=== PATIENT | male | born 1980 | race Caucasian/White ===

== ENCOUNTER 2016-04-13 17:14 | Emergency (ER) | payer OTHER ==
--- NOTE | ~2016-04-13 | EKG ---
PATIENT: DIONISIO DINERO UNIT #: [id number] Ventricular Rate: 102 BPM Atrial Rate: 102 BPM P-R Interval: 166 ms QRS Duration: 76 ms Q-T Interval: 324 ms QTC Calculation(Bezet): 422 ms P [place]: 76 degrees Calculated R [place]: 50 degrees Calculated T [place]: 74 degrees Diagnosis Line: Sinus tachycardia Nonspecific ST abnormality T Diagnosis Line: wave abnormality, consider lateral ischemia Diagnosis Line: Otherwise normal ECG Diagnosis Line: When compared with ECG of 13-APR-2016 17:06, Diagnosis Line: (unconfirmed) Diagnosis Line: No significant change was found Diagnosis Line: Confirmed by JOSE BLACKMON MD ([id number]) on 04/14/2016 Diagnosis Line: 6:22:53 PM INTERPRETING MD: LORRI LONG
[~2016-04-13 17:14] MED LIST: NO MEDICATIONS
[2016-04-13 18:22] LABS: BASOPHIL# 0.1 X10e3 (0-0.3); BASOPHIL% 1.2 % (0-2.5); EOSINOPHIL% 0.6 % (0.0-7.0); HEMATOCRIT 46.8 % (38.0-50.0); LYMPHOCYTE# 1.8 X10e3 (1.0-3.5); LYMPHOCYTE% 30.7 % (17.0-45.0); MEAN CELL VOLUME 102.1 FL (83-96); MEAN CORPUSCULAR HEMOGLOBIN 34.8 PG (28-34); MEAN CORPUSCULAR HGB CONC 34.1 g/dL (30-36); MEAN PLATELET VOLUME 7.7 FL (6.5-11.5); MONOCYTE# 0.5 X10e3 (0-1.0); MONOCYTE% 7.9 % (3.0-12.0); NEUTROPHIL# 3.5 X10e3 (1.5-7.1); NEUTROPHIL% 59.6 % (40-75); PLATELET COUNT 245 X10e3 (140-420); RED BLOOD COUNT 4.59 X10e (3.90-5.60); RED CELL DISTRIBUTION WIDTH 12.8 % (11.0-15.5); WHITE BLOOD COUNT 5.8 X10e3 (4.0-10.5)
[2016-04-13 18:23] LABS: DIFF IND NO
[2016-04-13 18:35] LABS: INR 0.9; PROTHROMBIN TIME (PATIENT) 9.6 SECONDS (9.6-11.5)
[2016-04-13 18:46] LABS: ALBUMIN SERUM 4.7 g/dL (3.5-5.0); ALKALINE PHOSPHATASE 89 U/L (32-92); ALT (SGPT) 92 U/L (10-40); AST (SGOT) 100 U/L (10-42); BILIRUBIN, DIRECT 0.1 mg/dL (0.0-0.2); BILIRUBIN,INDIRECT 0.4 mg/dL (0.0-0.9); BILIRUBIN,TOTAL 0.5 mg/dL (0.2-2.0); BLOOD UREA NITROGEN 9 mg/dL (9-23); CARBON DIOXIDE 26 mmol/L (22-31); CHLORIDE 101 mmol/L (100-111); CREATININE SERUM 0.9 mg/dL (0.6-1.4); GLOM FILT RATE Estimated ABOVE60 mL/min (>60); GLUCOSE FASTING 158 mg/dL (70-110); POTASSIUM 3.3 mmol/L (3.5-5.1); PROTEIN TOTAL SERUM 8.1 g/dL (6.0-8.3); SALICYLATE <4.0 mg/dL; SODIUM 139 mmol/L (135-145)
[2016-04-13 18:55] LABS: ACETAMINOPHEN <10 ug/mL
[2016-04-13 18:56] LABS: ALCOHOL BLOOD 375 mg/dL (0)
[2016-04-13 20:24] LABS: AMPHETAMINE NEG (NEG); BARBITURATES NEG (NEG); BENZODIAZEPINES NEG (NEG); COCAINE NEG (NEG); MARIJUANA POS (NEG); OPIATES NEG (NEG); TRICYCLIC ANTIDEPRESSANTS NEG (NEG); U METHADONE NEG (NEG)
== END 2016-04-13 22:24 | disposition home or self-care (01) ==
LOC: CED 17:14
PROVIDERS: Emergency Medicine
DX: F10.129 Alcohol abuse with intoxication, unspecified (principal); F17.200 Nicotine dependence, unspecified, uncomplicated; Z98.890 Other specified postprocedural states
CPT/HCPCS: 36415; 80048; 80076; 80307; 82947; 85025; 85610; 93005; 96374; 99283; G0480; J2060; J3411; J3475

== ENCOUNTER 2016-06-17 11:00 | Inpatient (IN) | payer OTHER ==
--- NOTE | ~2016-06-17 | PN ---
Unit #: [id number] #: [id number] Patient: JAMAR DINERO [id number] [facility] [address] [place] [address] [id number] I MR#: [id number] NAME: JAMAR DINERO. ROOM: 74 Age: 35 Sex: M Admission Date: 06/17/2016 : 1980 Attending Physician: Nick Price M.D. Admitting Physician: Nick Price M.D. Primary Care Physician: Annabelle Avendaño PROGRESS NOTES DATE 06/19/2016 DISCUSSION Jamar is a 35-year-old male seen on 06/19/2016. The patient interviewed, chart reviewed. Obtained information from nursing staff. The patient continues to be isolative, guarded, flat affect. Vital signs 98.1, 79, 113/75. The patient is able to sleep good. Able to participate in group. Mood sad, dysphoric. The patient was admitted with alcohol use disorder moderate opiate use disorder moderate. Complete review of systems unremarkable. MENTAL STATUS EXAMINATION General appearance, the patient dressed casually. Attention span and concentration fair. Oriented to time, place and person. Mood and affect labile. Speech monotone. Thought process concrete. The patient denied any thoughts of harming self or others. Recent and remote memory poor. Insight and judgement poor. DIAGNOSES Alcohol use disorder moderate Opioid use moderate ASSESSMENT/PLAN Advise to continue with current medication and therapeutic protocol. If needed consider further adjustment of medication. Dictated by... Annabelle Ibarra/juanita TD: 06/21/2016 03:17 JOB #: [id number] Unit #: [id number] #: [id number] Patient: JAMAR DINERO PROGRESS NOTES Page 1 of 1 X Nick Price MD X PROGRESS NOTE
--- NOTE | ~2016-06-17 | PN ---
Unit #: [id number] #: [id number] Patient: JAMAR DINERO [id number] [facility] [address] [place] [address] [id number] I MR#: [id number] NAME: JAMAR DINERO. ROOM: P174 Age: 35 Sex: M Admission Date: 06/17/2016 : 1980 Attending Physician: Nick Price M.D. Admitting Physician: Nick Price M.D. Primary Care Physician: Annabelle Avendaño PROGRESS NOTES DATE 06/18/2016 DISCUSSION Jamar is a 35-year-old male seen on 06/18/2016. Patient interviewed, chart reviewed, obtained information from the nursing staff. The patient's vital signs are 98.7, 76, 133/88. Complete review of systems unremarkable. MENTAL STATUS EXAMINATION General appearance: Patient dressed casually. Attention span and concentration fair. Oriented in time, place and person. Mood and affect labile. Speech monotone. Thought process concrete. Patient denied any thoughts of harming self or others, but anxious, nervous, withdrawn, isolative. Recent and remote memory poor. Insight and judgement poor. DIAGNOSIS Alcohol use disorder, moderate. F10.20. Opiate use disorder, moderate. F11.20. ASSESSMENT AND PLAN Continued with current therapeutic treatment on the inpatient unit. If needed, consider further adjustment of medication. Dictated by... Annabelle Ibarra/tanvir TD: 06/19/2016 12:15 JOB #: [id number] Unit #: [id number] #: [id number] Patient: JAMAR DINERO PROGRESS NOTES Page 1 of 1 X Nick Price MD PROGRESS NOTE
--- NOTE | ~2016-06-17 | PN ---
Unit #: [id number] #: [id number] Patient: JAMAR DINERO [id number] [facility] [address] [place] [address] [id number] I MR#: [id number] NAME: JAMAR DINERO. ROOM: 74 Age: 35 Sex: M Admission Date: 06/17/2016 : 1980 Attending Physician: Nick Price M.D. Admitting Physician: Nick Price M.D. Primary Care Physician: Annabelle Avendaño PROGRESS NOTES DATE 06/20/2016 DISCUSSION Jamar Dinero is a 35-year-old male, seen on 06/20/2016. The patient interviewed, chart reviewed, and obtained information from the nursing staff. The patient pleasant and cooperative, tolerating medication fairly well. The patient still somewhat isolative and guarded, but making progress. Vital signs, 98.1, 91, 18, and 145/80. REVIEW OF SYSTEMS Complete review of systems unremarkable. MENTAL STATUS EXAMINATION General appearance: Patient dressed casually. Attention span and concentration, fair. Oriented to place and person. Mood and affect, sad and dysphoric. Speech, monotone. Thought process, goal-directed. The patient denied any thoughts of harming self or others. Recent and remote memory, poor. Insight and judgment, poor. DIAGNOSES 1. Alcohol use disorder, severe. 2. Opiate use disorder, moderate. ASSESSMENT/PLAN Advised to continue with the current medication and therapeutic protocol, and if needed consider further adjustment of medication. Dictated by... Annabelle Ibarra/pito TD: 06/21/2016 11:35 JOB #: [id number] Unit #: [id number] #: [id number] Patient: JAMAR DINERO PROGRESS NOTES Page 1 of 1 X Nick Price MD X PROGRESS NOTE
--- NOTE | ~2016-06-17 | HP ---
Unit #: [id number] #: [id number] Patient: DIONISIO DINERO [id number] [place] [address] [id number] I MR#: [id number] NAME: DIONISIO DINERO. ROOM: 74 Age: 35 Sex: M Admission Date: 06/17/2016 : 1980 Attending Physician: Nick Price M.D. Admitting Physician: Nick Price M.D. Primary Care Physician: Jessica Simpson M.D. HISTORY AND PHYSICAL HISTORY OF PRESENT ILLNESS The patient is a 35-year-old male admitted to [facility] on 06/17/2016 for heroin and alcohol abuse. PAST MEDICAL HISTORY 1. Withdrawal seizures. 2. Polysubstance use. 3. Smoker. PAST SURGICAL HISTORY 1. Appendectomy. 2. Hernia repair. ALLERGIES No known drug allergies. SOCIAL HISTORY He is unemployed. He lives in hotels. He smokes 1/2 pack of cigarettes daily. Drinks half gallon of vodka per day. He uses heroin on a daily basis. FAMILY HISTORY Noncontributory. REVIEW OF SYSTEMS CONSTITUTIONAL: No fever or chills. HEENT: Denies any sore throat, ear pain or runny nose. CARDIOVASCULAR: Denies chest pain, irregular heart rhythm or palpitations. CHEST: Denies shortness of breath or cough. No hemoptysis. GASTROINTESTINAL: Denies nausea, vomiting, diarrhea or chronic constipation. ENDOCRINE: Denies history of increased thirst or urination. No recent significant weight loss or gain. GENITOURINARY: Denies dysuria, frequency, or hematuria. SKIN: Denies any rashes. HEMATOLOGIC: Denies history of increased bleeding or bruising. MUSCULOSKELETAL: Denies any hot, swollen joints. No generalized muscle pain. NEUROLOGIC: Denies problems with vision or speech. No frequent, severe headaches. No numbness, tingling or weakness in any extremities. Denies loss of bladder or bowel control. CURRENT MEDICATIONS Unit #: [id number] #: [id number] Patient: DIONISIO DINERO The patient is not on any home medications. PHYSICAL EXAMINATION GENERAL: He is awake, alert, oriented, in no acute distress. VITAL SIGNS: Temperature 97.8, heart rate 76, respirations 17, blood pressure 132/88. HEIGHT: 5 feet 11. WEIGHT: 160 pounds. SKIN: Warm and dry without rash or lesion. HEENT: Normocephalic. TMs not viewed. Oral and nasal passages clear. Conjunctivae clear. PERRLA. EOMs intact. NECK: Supple without lymphadenopathy or thyromegaly. HEART: Regular rate and rhythm without murmur. LUNGS: Clear. ABDOMEN: Soft, nontender. : Not done. EXTREMITIES: No evidence of cyanosis, clubbing or edema. Moves all without focal deficit. NEUROLOGICAL: Grossly within normal limits. Cranial Nerves: II: Visual chen are intact. III, IV AND : Extraocular movements are intact. Pupils are equal, round and reactive to light. V: Facial sensation is grossly normal. VII: Facial movements and expression are normal. VIII: Auditory acuity grossly intact. IX, X: Uvula is midline. Phonation is normal. XI: Patient shrugs shoulders and turns head normally. XII: Tongue protrudes in the midline. Sensory and Motor Function: Sensory and motor sensation is grossly normal. Motor: moves all extremities well. Coordination: Gait is normal. Deep Tendon Reflexes: Intact. IMPRESSION 1. Psychiatric admission. 2. Polysubstance use. 3. Withdrawal seizures. 4. Smoker. RECOMMENDATIONS PSYCHIATRIC: Per psychiatrist. MEDICAL: See no contraindications to participate in facility's activities. MEDICAL PROGNOSIS Good. MEDICAL CONDITION Stable. Dictated by... Sohan Cooper/chica TD: 06/18/2016 21:57 JOB #: [id number] Unit #: [id number] #: [id number] Patient: DIONISIO DINERO HISTORY AND PHYSICAL Page 1 of 1 X ZARIA CHEN APRN HISTORY AND PHYSICAL
--- NOTE | ~2016-06-17 | DS ---
Unit #: [id number] #: [id number] Patient: DIONISIO DINERO [id number] [facility] [address] [place] [address] [id number] I MR#: [id number] NAME: DIONISIO DINERO. ROOM: 74 Age: 35 Sex: M Admission Date: 06/17/2016 : 1980 Discharge Date: 06/21/2016 Attending Physician: Nick Price M.D. Primary Care Physician: Jessica Simpson M.D. DISCHARGE SUMMARY REASON FOR ADMISSION Suicidal ideation, detox. DIAGNOSTIC STUDIES LABORATORY RESULTS: Urine drug screen positive for benzodiazepine and marijuana. HOSPITAL COURSE The patient was admitted to inpatient unit on 06/17/2016 and discharged on 06/21/2016. The patient was treated with expressive therapy, medication management, psychoeducation, psychotherapy, and structured milieu. The patient responded well with the above modalities of treatment and able to maintain safe behavior. Subsequently, the patient was discharged with a plan to follow up in [facility]. DISCHARGE MEDICATIONS None. DISCHARGE DIAGNOSES Psychiatric: 1. Alcohol use disorder, moderate, F10.20. 2. Opioid use disorder, moderate, F11.20. 3. Sedative hypnotic use disorder, moderate, F13.20. 4. Cannabis abuse, moderate, F12.20. Secondary diagnosis: Deferred. Medical diagnosis: History of withdrawal seizures. Stressors: Psychosocial stressors. DISCHARGE INSTRUCTIONS The patient to follow up in outpatient clinic as per director of social services. CONDITION ON DISCHARGE The patient was pleasant and cooperative. Denied any psychotic symptom or any suicidal ideation. PROGNOSIS Guarded. DIET AND ACTIVITY As tolerated. Unit #: [id number] #: [id number] Patient: DIONISIO DINERO Dictated by... Nick Price M.D. SZC/heena TD: 06/22/2016 01:02 JOB #: [id number] DISCHARGE SUMMARY Page 1 of 1 X Nick Price MD X DISCHARGE SUMMARY
--- NOTE | ~2016-06-17 | PA ---
Unit #: [id number] #: [id number] Patient: JAMAR DINERO [id number] [facility] [address] [place] [address] [id number] MR#: [id number] NAME: JAMAR DINERO. ROOM: 74 Age: 35 Sex: M Admission Date: 06/17/2016 : 1980 Date of Assessment: Attending Physician: Nick Price M.D. Admitting Physician: Nick Price M.D. Primary Care Physician: Jessica Simpson M.D. PSYCHIATRIC ASSESSMENT INFORMANT The patient reliability, fair; chart reliability, good. CHIEF COMPLAINT Detox from alcohol, opiates. HISTORY OF PRESENT ILLNESS Jamar is a 35-year-old male, seen on , presented with the above-mentioned complaint, admitted with alcohol use disorder, opioid use disorder, withdrawal seizure. The patient reported that he drinks all throughout the day, stated that he can only sleep if he has been drinking and awake in the middle of the night and must drink in order to go back to sleep. The patient reported history of withdrawal seizure or DTs. The patient reported hearing music night time and knows seizure comes. The patient reported using heroin and has been doing so for in the last 4 to 5 days. The patient currently scored 13 on CIWA. Denied any suicidal or homicidal ideation. Needing inpatient admission at this time for psychiatric stabilization. PAST PSYCHIATRIC HISTORY Remarkable for history of previous treatment inpatient 3 years ago. FAMILY HISTORY AND SOCIAL HISTORY The patient's family history is unremarkable. No history of abuse. Poor support system. MEDICAL HISTORY Remarkable for history of withdrawal seizures. No chronic medical condition. Musculoskeletal; muscle strength and tone, no atrophy or abnormal movement. Gait normal. MEDICATION HISTORY None. ALLERGIES No known drug allergies. SUBSTANCE ABUSE HISTORY The patient reported alcohol use, age of onset 14; tobacco, age of onset 17; marijuana, age of onset 14; opioid, age of onset 27. Longest period of sobriety 1 year and 3 months. Last period of sobriety, fall. The patient denied any blackout, but history of withdrawal seizures. No history of HIV or hepatitis. No history of IV drug use. Currently Unit #: [id number] #: [id number] Patient: JAMAR DINERO reporting muscle cramping, abdominal cramping, nausea, headache, restlessness, nervousness, diaphoresis. REVIEW OF SYSTEMS HEENT: Eye, clear. Ears, nose, mouth, and throat; clear. CARDIOVASCULAR: Unremarkable. RESPIRATORY: Unremarkable. GI: Unremarkable. : Unremarkable. SKIN: Unremarkable. LYMPH NODE: Unremarkable. NEUROLOGIC: Unremarkable. ENDOCRINE: Unremarkable. HEMATOLOGIC: Unremarkable. ALLERGIC/IMMUNOLOGIC: Unremarkable. MUSCULOSKELETAL: Muscle strength and tone, no atrophy or abnormal movement. Gait normal. MENTAL STATUS EXAMINATION CONSTITUTIONAL: Measurement of vital signs; temperature 97.8, pulse 76, respirations 18, oxygen saturation 97%, and blood pressure 132/88, height 5 feet 11 inches, weight 160 pounds. GENERAL APPEARANCE: The patient dressed casually. The patient did not show any facial deformity. MUSCULOSKELETAL: Please see above. PSYCHIATRIC EXAMINATION Description of speech; regular rate, normal volume, normal articulation. Description of thought process, goal directed. Description of association, intact. Description of abnormal psychotic thinking; the patient denied any hallucination or delusions, but substance abuse, withdrawal. Description of the patient's judgment, concerning everyday activity, poor. Social situation, poor. Concerning psychiatric condition, poor. Complete mental status examination; oriented in time, place, and person. Recent and remote memory, fair. Attention span and concentration, fair. Language, able to name, object, and repeat phrases. Fund of knowledge, aware of current event and passive. Vocabulary, intact. Mood and affect, sad and dysphoric. Insight and judgment, fair to poor. ASSETS AND LIABILITIES Assets; the patient is articulate and able to take care of his ADL. Liability; history of substance abuse. ADMITTING DIAGNOSES Psychiatric: Alcohol use disorder, moderate, F10.20; opioid use disorder, moderate F11.20. Secondary diagnosis: Deferred. Medical diagnosis: History of withdrawal seizure. Stressors: Psychosocial stressors. PSYCHIATRIC PLAN AND TREATMENT GOAL AND DISCHARGE PLAN 1. Advised to admit the patient on the inpatient unit. Provide safe, supportive, and structured environment. Unit #: [id number] #: [id number] Patient: JAMAR DINERO 2. Ordered labs; CBC, CMP, UA, and UDS. 3. Detox protocol and detox monitoring. 4. The patient to attend all the programing on the inpatient unit group therapy, individual therapy, medication management, chemical dependency group. 5. Monitor for withdrawal seizure. The patient to continue with the current programming. If needed, consider further adjustment of medication. 6. Treatment goal; to attain euthymic mood, gain insight into his problem, and learn coping skills. 7. Discharge plan; plan to stabilize the patient and consider followup in outpatient program. ESTIMATED LENGTH OF STAY 3 to 5 days. Dictated by... Annabelle Ibarra/heena TD: 06/18/2016 20:20 JOB #: [id number] PSYCHIATRIC ASSESSMENT Page 1 of 1 X Nick Price MD X PSYCHIATRIC ASSESSMENT
[2016-06-18 10:47] LABS: BASOPHIL# 0.1 X10e3 (0-0.3); BASOPHIL% 1.5 % (0-2.5); EOSINOPHIL# 0.1 X10e3 (0-0.7); EOSINOPHIL% 2.2 % (0.0-7.0); HEMATOCRIT 45.4 % (38.0-50.0); HEMOGLOBIN 14.8 gm/dL (13.0-16.0); LYMPHOCYTE# 2.2 X10e3 (1.0-3.5); LYMPHOCYTE% 36.9 % (17.0-45.0); MEAN CELL VOLUME 106.1 FL (83-96); MEAN CORPUSCULAR HEMOGLOBIN 34.6 PG (28-34); MEAN CORPUSCULAR HGB CONC 32.6 g/dL (30-36); MEAN PLATELET VOLUME 8.2 FL (6.5-11.5); MONOCYTE# 0.6 X10e3 (0-1.0); MONOCYTE% 10.5 % (3.0-12.0); NEUTROPHIL# 2.9 X10e3 (1.5-7.1); NEUTROPHIL% 48.9 % (40-75); PLATELET COUNT 336 X10e3 (140-420); RED BLOOD COUNT 4.28 X10e (3.90-5.60); RED CELL DISTRIBUTION WIDTH 13.2 % (11.0-15.5); WHITE BLOOD COUNT 5.9 X10e3 (4.0-10.5)
[2016-06-18 10:48] LABS: DIFF IND NO
[2016-06-18 11:27] LABS: URINE APPEARANCE CLEAR; URINE BILIRUBIN NEG (NEG); URINE BLOOD NEG (NEG); URINE COLOR DK YELLOW; URINE GLUCOSE NEG (NEG); URINE KETONE NEG (NEG); URINE LEUKOCYTE ESTERASE 1+ (NEG); URINE NITRATE NEG (NEG); URINE PROTEIN NEG (NEG); URINE SPECIFIC GRAVITY 1.031 (1.003-1.035)
[2016-06-18 11:30] LABS: URBCS1 AUWI 0-2 /[HPF] (0-2); URINE BACTERIA AUWI NEG (NEGATIVE); URINE SQUAMOUS EPITHELIAL CELL OCC /[HPF]; UWBCS1 AUWI 25-50 (0-5)
[2016-06-18 11:36] LABS: ALBUMIN SERUM 4.4 g/dL (3.5-5.0); BILIRUBIN,TOTAL 0.7 mg/dL (0.2-2.0); BUN/CREATININE RATIO 22.85; CALCIUM SERUM 9.1 mg/dL (8.4-10.2); CREATININE SERUM 0.7 mg/dL (0.6-1.4); PROTEIN TOTAL SERUM 7.1 g/dL (6.0-8.3)
[2016-06-18 12:25] LABS: AMPHETAMINE NEG (NEG); BARBITURATES NEG (NEG); BENZODIAZEPINES POS (NEG); COCAINE NEG (NEG); MARIJUANA POS (NEG); OPIATES NEG (NEG); TRICYCLIC ANTIDEPRESSANTS NEG (NEG); U METHADONE NEG (NEG)
== END 2016-06-21 12:25 | disposition home or self-care (01) | DRG 897 ==
LOC: P1E 14:05
PROVIDERS: Psychiatry & Neurology Psychiatry
PROC: HZ2ZZZZ Detoxification Services for Substance Abuse Treatment (ICD-10-PCS; principal; 2016-06-17)
DX: F10.20 Alcohol dependence, uncomplicated (principal); F11.20 Opioid dependence, uncomplicated; F13.20 Sedative, hypnotic or anxiolytic dependence, uncomplicated; F17.210 Nicotine dependence, cigarettes, uncomplicated; F12.20 Cannabis dependence, uncomplicated
CPT/HCPCS: 80053; 80307; 81003; 85025; 86592